=== PATIENT | male | born 2000 | race Two or more races ===

== ENCOUNTER 2021-11-24 19:26 | Emergency (ER) | payer OTHER ==
[~2021-11-24] VITALS: Ht 180.3 cm; Wt 71.4 kg
[2021-11-24 19:50] VITALS: BP 138/72
--- NOTE | 2021-11-24 20:20 | PHYS DOC ---
Adult General Chief Complaint Chief Complaint: FINGER INJURY HPI HPI Patient is an otherwise healthy 21-year-old male who presents with right thumb pain after jamming it while playing basketball just before coming to the ED. Did not take any medications. Denies any other injuries. States it hurts about 5 out of 10, dull and achy in nature with no radiation. Review of Systems Review of Systems Review of systems otherwise unremarkable except noted in HPI Physical Exam Physical Exam Constitutional: Well developed, well nourished, no acute distress, non-toxic appearance. [] HENT: Normocephalic, atraumatic, Extremities: Neurovascular exam intact, mild pain with passive and active range of motion of the right thumb with no obvious deformities Neurologic: Alert and oriented X 3, normal motor function, normal sensory function, no focal deficits noted. [] Psychologic: Affect normal, judgement normal, mood normal. [] EKG EKG [] Radiology/Procedures Radiology/Procedures [] Heart Score C/O Chest Pain: No Risk Factors: Risk Factors: DM, Current or recent (<one month) smoker, HTN, HLP, family history of CAD, obesity. Risk Scores: Risk Factors: DM, Current or recent (<one month) smoker, HTN, HLP, family history of CAD, obesity. Course & Med Decision Making Course & Med Decision Making Patient is a 21-year-old male who presents with right thumb pain Vital signs nonconcerning. Physical exam noted above. Given ice pack and Tylenol. Imaging with no acute osseous abnormalities. Discussed findings with patient Discussed him to management at home. Advised follow-up with primary care physician Gave return precautions to the ED peer patient grateful, verbalized understanding agree with plan of discharge [] Dragon Disclaimer Dragon Disclaimer This electronic medical record was generated, in whole or in part, using a voice recognition dictation system. Departure Departure: Impression: Primary Impression: Thumb pain Disposition: HOME / SELF CARE / HOMELESS Condition: STABLE Referrals: PCP,UNKNOWN (PCP) NAZANIN KAUR MD Patient Instructions: RICE - Routine Care for Injuries Additional Instructions: Thank you for coming into the emergency department tonight and allowing us to take care of you. Please read the attached information carefully to go over things we discussed. Please continue Tylenol, ibuprofen and ice at home. Please follow-up in the morning with your primary care physician update on your ED visit and set up a follow-up. Please contact with new or concerning symptoms as discussed. SMITA DUNHAM MD November 24, 2021 20:20
--- NOTE | 2021-11-24 20:40 | RAD ---
Exam: Right hand 3 views INDICATION: Right thumb injury, pain radiating to an, pain TECHNIQUE: Frontal, lateral oblique views of the right hand Comparisons: None FINDINGS: Bone mineralization is normal. No acute or healed fractures. Soft tissues are unremarkable. Joint spa lolly are well-maintained. Incompletely fused growth plate along the radial aspect of the distal radial metaphysis. IMPRESSION: No acute osseous abnormality. Electronically signed by: Fritz Calvillo MD (11/24/2021 8:38 PM) [facility]
[2021-11-24] MEDS: ACETAMINOPHEN 500 MG TABLET PO ONE (21:00)
== END 2021-11-24 21:05 | disposition home or self-care (01) ==
LOC: ER 19:26
DX: M79.644 Pain in right finger(s) (principal)
CPT/HCPCS: 73130; 99283